=== PATIENT | female | born 1970 | race Caucasian/White ===

== ENCOUNTER 2020-02-19 10:05 | Emergency (ER) | payer MEDICAID ==
--- NOTE | 2020-02-19 10:46 | ED Physician Documentation ---
PD HPI SKIN - Stated complaint Stated Complaint: SORES ON FACE - Chief complaint Chief Complaint: General - History obtained from History obtained from: Patient - History of Present Illness Timing - onset: How many days ago (3) Timing - duration: Days (3) Timing - details: Gradual onset, Still present Location: Face Quality / character: Itchy, Discolored, Crusted. No: Draining Associated symptoms: No: Fever, Myalgias Contributing factors: Other (wore her mothers mask) Similar symptoms before: Has not had sx before Recently seen: Not recently seen - Additional information Additional information: 49-year-old female has developed some sores on her face and may have crusted over with a yellowish color. She is not having a mass under the skin or drainage. She did wear her mother's mask. Review of Systems Constitutional: denies: Fever Eyes: denies: Decreased vision Ears: denies: Ear pain Nose: denies: Congestion Throat: denies: Sore throat Respiratory: denies: Cough GI: denies: Vomiting PD PAST MEDICAL HISTORY - Present Medications Home Medications: Ambulatory Orders Medication Instructions Recorded Confirmed Mupirocin 1 gm TP BID #28 gm 02/19/20 PD ED PE NORMAL - Vitals Vital signs reviewed: Yes (hypertensive ) - General General: Alert and oriented X 3, No acute distress, Well developed/nourished - HEENT HEENT: Atraumatic, PERRL, EOMI, Other (There is a patch of skin on the chin that is honey crusted consistent with acute impetigo.) - Neck Neck: Supple, no meningeal sign - Respiratory Respiratory: No respiratory distress - Derm Derm: Normal color, Warm and dry, Other (Skin changes over the chin consistent with impetigo) - Extremities Extremities: No deformity, No edema - Neuro Neuro: Alert and oriented X 3, olive knocker 2-12 intact, No motor deficit, No sensory deficit, Normal speech Eye Opening: Spontaneous Motor: Obeys Commands Verbal: Oriented GCS Score: 15 - Psych Psych: Normal mood, Normal affect Results - Vitals Vitals: Vital Signs - 24 hr 02/19/20 10:14 Temperature 36.7 C Heart Rate 78 Respiratory 19 Rate Blood Pressure 119/90 H O2 Saturation 100 Oxygen O2 Source Room air PD MEDICAL DECISION MAKING - ED course Complexity details: reviewed results, re-evaluated patient, considered differential, d/w patient ED course: 49-year-old female with what appears to be impetigo we will place her on some mupirocin Departure - Departure Disposition: Home, Self Care Clinical Impression: Impetigo Condition: Stable Instructions: Impetigo Follow-Up: Your, Doctor [Other] Prescriptions: Mupirocin 1 gm TP BID #28 gm
[2020-02-19 10:49] VITALS: BP 122/85
== END 2020-02-19 11:00 | disposition home or self-care (01) ==
LOC: ED 10:05
DX: L01.00 Impetigo, unspecified (principal)
CPT/HCPCS: 99282; 99284